=== PATIENT | male | born 1950 ===

== ENCOUNTER 2018-07-30 11:30 | Inpatient (IN) | payer OTHER ==
[~2018-07-30] VITALS: Ht 167.6 cm; Wt 76.2 kg
[2018-07-30] MEDS ORDERED: GABAPENTIN800 MG PO (15:06)
[2018-07-30] MEDS ORDERED: ZOCOR40 MG PO (15:07)
[2018-07-30] MEDS ORDERED: COZAAR100 MG PO (15:07)
[2018-07-30] MEDS ORDERED: METROPOLOL PO (15:07)
[2018-08-06] MEDS ORDERED: TOPROL XL50 MG PO (09:22)
[2018-08-07] MEDS ORDERED: DOCUSATE SODIU100 MG PO (09:15)
[2018-08-07] MEDS ORDERED: PERCOCET 5-3251 EACH PO (09:16)
[2018-08-07] MEDS ORDERED: CLONAZEPAM1 MG PO (09:16)
[2018-08-07] MEDS ORDERED: MEDROLPACK PO (11:32)
== END 2018-08-07 18:39 | disposition home or self-care (01) | DRG 454 ==
LOC: O/R 08-06 05:10 → SURH 08-06 05:10 → SURG 08-06 09:30 → SURH 08-06 13:17
PROVIDERS: Orthopaedic Surgery Orthopaedic Surgery of the Spine
PROC: 0RT30ZZ Resection of Cervical Vertebral Disc, Open Approach (ICD-10-PCS; 2018-08-06)
PROC: 0RG20J0 Fusion of 2 or more Cervical Vertebral Joints with Synthetic Substitute, Anterior Approach, Anterior Column, Open Approach (ICD-10-PCS; 2018-08-06)
PROC: 07DS3ZZ Extraction of Vertebral Bone Marrow, Percutaneous Approach (ICD-10-PCS; 2018-08-06)
PROC: 0RG2071 Fusion of 2 or more Cervical Vertebral Joints with Autologous Tissue Substitute, Posterior Approach, Posterior Column, Open Approach (ICD-10-PCS; principal; 2018-08-06 09:30)
DX: M50.01 Cervical disc disorder with myelopathy, high cervical region (principal); M47.12 Other spondylosis with myelopathy, cervical region; I10 Essential (primary) hypertension